=== PATIENT | female | born 1985 ===

== ENCOUNTER 2023-10-31 14:49 | Outpatient (CLI) | payer OTHER, SELFPAY ==
[2023-10-31 21:54] LABS: Chlamydia DNA Amplified* NOT DETECTED (No Detected); GC DNA Amplified* NOT DETECTED (No Detected)
== END 2023-10-31 14:50 | disposition home or self-care (01) ==
PROVIDERS: Visit Provider Registered Nurse
DX: Z11.3 Encounter for screening for infections with a predominantly sexual mode of transmission (principal); Z13.220 Encounter for screening for lipoid disorders
CPT/HCPCS: 80061; 87491; 87591